=== PATIENT | female | born 1985 | race Two or more races ===

== ENCOUNTER 2025-04-04 22:16 | Emergency (ER) | payer OTHER ==
[~2025-04-04] VITALS: Ht 167.6 cm; Wt 76.2 kg
[~2025-04-04 22:16] MED LIST: Vistaryl 50MG CAP PO
[2025-04-04] MEDS ORDERED: BISOPROLOL FUMAR5 MG PO (22:30)
[2025-04-04] MEDS ORDERED: NIFEDIPINE20 MG PO (22:31)
[2025-04-04] MEDS ORDERED: ORPHENADRINE CITRATE 30 MG/ML AMPUL IV ONE (23:30)
[2025-04-04] MEDS ORDERED: 0.9 % SODIUM CHLORIDE 1,000 ML IV ONE (23:30)
[2025-04-04] MEDS ORDERED: ORPHENADRINE CITRATE 30 MG/ML AMPUL ONE (23:44)
[2025-04-05 00:10] LABS: BASO % 0.1 % (0.1-1.2); EOS # 0.14 (0.04-0.54); EOS % 1.9 % (0.7-7.0); HEMATOCRIT 42.3 % (34.1-44.9); HEMOGLOBIN 14.3 g/dL (11.2-15.7); LYMPH # 1.68 (1.18-3.74); LYMPH % 22.3 % (19.3-53.1); MEAN CORPUSCULAR HEMOGLOBIN 30.2 pg (25.6-32.2); MONO # 0.49 (0.24-0.82); MONO % 6.5 % (4.7-12.5); NEUT # 5.22 (1.56-6.13); NEUT % 69.1 % (34.0-71.1); PLATELET COUNT 248 K/uL (163-369); RED BLOOD COUNT 4.73 M/uL (3.93-5.22); RED CELL DISTRIBUTION WIDTH 12.2 % (11.6-14.4)
[2025-04-05 00:23] LABS: PH,URINE 7.5 (5.0-8.0); URINE APPEARANCE Clear; URINE BILIRRUBIN Negative (NEGATIVE); URINE BLOOD Moderate; URINE COLOR Yellow; URINE GLUCOSE Negative (NEGATIVE); URINE KETONE Negative (NEGATIVE); URINE LEUKOCYTE Negative; URINE NITRATE Negative; URINE PROTEIN Negative (NEGATIVE); URINE UROBILINOGEN 0.2 E.U./dl
[2025-04-05 00:27] LABS: URINE BACTERIA 201.8 uL (0.0-1933); URINE EPITHELIAL CELLS 14.8 uL (0.0-38.8); URINE WBC 7.2 uL (0.0-23.2)
[2025-04-05 00:34] LABS: INR 1.01; PARTIAL THROMBOPLASTIN TIME 24.8 SECONDS (22.0-34.0)
[2025-04-05 00:52] LABS: ALBUMIN 4.2 gm/dL (3.4-5.0); ALKALINE PHOSPHATASE 50 U/L (50-136); ALT/SGPT 60 U/L (12-78); ANION GAP 9 (10.0-20.0); AST/SGOT 37 U/L (15-37); BILIRUBIN TOTAL 0.79 mg/dL (0.3-1.2); BLOOD UREA NITROGEN 11 mg/dL (7-18); BUN CREA RATIO 14 (7.0-25.0); CALCIUM 9.7 mg/dL (8.5-10.1); CARBON DIOXIDE 29 mEq/L (21-32); CHLORIDE 106 mmol/L (98-107); GFR 79.85; GLUCOSE FASTING 94 mg/dL (65-100); OSMOLALITY SERUM 279 MOSM/KG (275-295); POTASSIUM 4.49 mEq/L (3.5-5.1); SODIUM 140 mmol/L (136-145); TOTAL PROTEIN 8.2 gm/dL (6.4-8.2)
[2025-04-05 00:57] LABS: HCG QUANTITATIVE < 1 mUI/mL (1-3)
== END 2025-04-05 02:58 | disposition home or self-care (01) ==
LOC: ER 22:16
PROVIDERS: General Practice
DX: O03.9 Complete or unspecified spontaneous abortion without complication (principal); R10.2 Pelvic and perineal pain; I10 Essential (primary) hypertension